=== PATIENT | female | born 1945 | race Two or more races ===

== ENCOUNTER 2019-09-09 11:34 | Emergency (ER) | payer OTHER ==
[~2019-09-09] VITALS: Ht 162.6 cm; Wt 61.2 kg
[2019-09-09] MEDS ORDERED: CANDESARTAN CILE8 MG PO (12:14)
[2019-09-09] MEDS ORDERED: METOPROLOL SUCCINATE PO (12:14)
[2019-09-09] MEDS ORDERED: SYNTHROID75 MCG PO ×2 (12:15→12:16)
[2019-09-09] MEDS ORDERED: RAZADYNE ER16 MG PO (12:16)
[2019-09-09] MEDS ORDERED: SYNTHROID88 MCG PO (12:16)
[2019-09-09] MEDS ORDERED: PLAVIX75 MG PO (12:17)
== END 2019-09-09 15:11 | disposition home or self-care (01) ==
LOC: ER 11:34
DX: J06.9 Acute upper respiratory infection, unspecified (principal); N39.0 Urinary tract infection, site not specified; B96.0 Mycoplasma pneumoniae [M. pneumoniae] as the cause of diseases classified elsewhere